=== PATIENT | male | born 1935 | race Caucasian/White ===

== ENCOUNTER 2023-09-21 17:39 | Emergency (ER) | payer OTHER, SELFPAY ==
[2023-09-21 17:40] VITALS: BP 179/96
--- NOTE | 2023-09-21 19:19 | ED.GENMED ---
History of Present Illness
General
Chief Complaint: Bowel Problem
Source: patient and family (Son and daughter)
Exam Limitations: none
Time Seen by Provider: 09/21/23 18:53
Nursing documentation reviewed up to this point in time: agreed with
Travel History
Have you had any contact with someone who has COVID-19?: No
Do you have any symptoms of coronavirus? Fever > 100 degrees, chills, cough, shortness of breath, sore throat, loss of taste or smell, muscle aches, or headache?: No
History of Present Illness
History of Present Illness:
88-year-old male presents emergency department due to constipation for the past 5 days. His son gave him an enema today. He vomited today. He denies any pain.
Past History
Past History
ED Past Medical History: Arrthythmia (Atrial fib), CAD, Cancer (Skin CA), HTN, Hypercholesterolemia, NIDDM, [place] (x 2 last [place] 1996.), Psychiatric (Depression) and Other (Expressive aphasia, Dementia, Deviated septum)
ED Past Surgical History: Cardiac (CABG 1996, Stents X 2), Orthopedic (Left and right knee replacements, ) and Other ( Bilateral hernia repair. Hemorrhoidectomy)
Social History
Tobacco: Former smoker (Mar 1963)
Alcohol: Former
Drug: None
Personal:
Living: with family
Employment: Retired
Family History
Family History: Other (Not contributory)
Review of Systems
Review of Systems
Allergies reviewed?: Yes
All Other Systems: Not applicable
Constitutional: Reports no symptoms
EENT: Reports no symptoms
Respiratory: Reports no symptoms
Cardiac: Reports no symptoms
ABD/GI: Reports vomiting and constipated
: Reports no symptoms
Musculoskeletal: Reports no symptoms
Phy Exam
Physical Exam
Physical Exam:
Physical Exam
General: no apparent distress, afebrile
Neck: supple. no meningeal signs. normal posterior pharynx
Heart: s1/s2 regular rate and rhythm, no murmur. equal radial
pulses.
HEENT: Pupils equal round reactive to light, EOMI
Lungs: no acute respiratory distress. clear bilaterally
Abdomen: normal bowel sounds. not tender. no CVAT, rectal exam: Fecal impaction, removed large amount of stool
Neuro: alert but not oriented. Expressive aphasia. No focal neurological deficits cranial nerves II through XII intact
Skin: no rash
Psychiatric: well kept. interactive and cooperative
Extremities: no edema. no calf tenderness. negative homans. good distal pulses
Course
Orders/Labs/Results
Orders:
Orders
09/21/23 19:18
Magnesium Citrate [Citroma] 300 ml PO ONCE ONE
Obstruct Series W/PA Chest [CR Obstruct Series W/pa Chest] Urgent
Comment:
Reason For Exam: constipated, vomiting
Vital Signs
Initial and Last Documented VS:
Initial Vital Signs
Temp Pulse Resp BP Pulse Ox
98.0 F 85 18 179/96 98
09/21/23 17:40 09/21/23 17:40 09/21/23 17:40 09/21/23 17:40 09/21/23 17:40
Last Documented Vital Signs
Temp Pulse Resp BP Pulse Ox
98.0 F 85 18 179/96 98
09/21/23 17:40 09/21/23 17:40 09/21/23 17:40 09/21/23 17:40 09/21/23 17:40
MDM/Problems Addressed
Differential Diagnosis Includes:
Constipation, bowel obstruction
MDM/Problems Addressed:
88-year-old male with constipation. No signs of bowel obstruction. Abdomen exam soft, nontender. Rectal exam revealed fecal impaction. Disimpaction successful. Abdominal x-ray reveals moderate constipation. Will have continue MiraLAX and take
a dose of magnesium citrate when he gets home.
Chronic conditions affecting care: DM and CAD
*Radiology
Radiology exam reviewed: preliminary read by ED provider (Abdominal series reveals moderate constipation, no free air or obstruction)
*Pulse Oximetry
Patient hypoxic: no
*EKG
Interpreted by ED Provider?: NA
*Assistant Clinical Nurse Manager Interpretation
Rate: Assistant Clinical Nurse Manager- N/A
*Critical Care Note
Total Time (30-74mins, 75-104mins- exclusive of procedures): Not Applicable
Data Reviewed
Review of Other/Old Records Reveals: Radiology Studies (Prior chest x-ray revealed increased interstitial markings)
Source: records
Further Testing Considered But Not Given:
CT scan not indicated
Patient Management
Social determinants of health affecting care: Living situation and Strong social support
Escalation/DeEscalation of care consider admission/obs:
Admit not indicated
ED Attending Note
-
Portions of this chart may have been created with voice recognition software.� Occasional wrong word or��sound alike� substitutions may have occurred due to the inherent limitations of voice recognition software.
Discharge Plan
Departure
Patient Disposition: Home (Routine Discharge)
Date of Disposition: 09/21/23
Time of Disposition: 20:13
Patient with high blood pressure during this ER visit?: Yes
Condition: Good
Discharge Problem:
Fecal impaction in rectum, Constipation
Instructions: Constipation, Adult (DC), Fecal Impaction (DC), BLOOD PRESSURE
Prescriptions:
No Action
rosuvastatin 20 MG tablet
20 mg PO DAILY
acetaminophen [Pain Relief ES (acetaminophen)] 500 mg Tablet
1,000 mg PO BID PRN (Reason: fever or pain) Qty: 90 0RF
carvedilol 6.25 mg tablet
6.25 mg PO BID
amlodipine 2.5 mg tablet
2.5 mg PO DAILY
glimepiride 1 mg tablet
1 mg PO DAILY
aspirin 81 mg tablet,chewable
81 mg PO DAILY
furosemide [Lasix] 20 mg tablet
20 mg PO MOWEFR Qty: 30 1RF
cefdinir 300 mg capsule
300 mg PO BID Qty: 6 0RF
Referrals:
Shon Arenas MD [Family Provider] - Call in 1-3 days for appt
Interventions
Interventions:
*Risk Screen - Suicide Last Done: 09/21/23 20:11
*General Assessment Last Done: 09/21/23 20:11
*Neglect/Abuse Screening Last Done: 09/21/23 20:11
*ED COVID-19 Vaccine History Last Done: 09/21/23 20:11
Discharge Date and Time
Print Language: SLOVENIAN
[2023-09-21] MEDS: CITROMA 300 ML PO (20:06)
[2023-09-21 20:12] VITALS: BP 153/67
== END 2023-09-21 21:11 | disposition home or self-care (01) ==
LOC: EMR 17:39
PROVIDERS: EMERGENCY PHYSICIAN Emergency Medicine; FAMILY PHYSICIAN Family Medicine
DX: K56.41 Fecal impaction (principal); I10 Essential (primary) hypertension
CPT/HCPCS: 99283; 74022